=== PATIENT | female | born 1960 | race Caucasian/White ===

== ENCOUNTER 2017-01-05 20:15 | Emergency (ER) | payer OTHER, BC, MEDICAID ==
[2017-01-05 21:27] VITALS: BP 125/78
== END 2017-01-05 21:27 | disposition home or self-care (01) ==
LOC: ED 20:15
DX: S80.11XA Contusion of right lower leg, initial encounter (principal); K21.9 Gastro-esophageal reflux disease without esophagitis; E03.9 Hypothyroidism, unspecified; Z88.2 Allergy status to sulfonamides; X58.XXXA Exposure to other specified factors, initial encounter; Y93.89 Activity, other specified; Y99.8 Other external cause status; Y92.89 Other specified places as the place of occurrence of the external cause